=== PATIENT | female | born 1955 | race Caucasian/White ===

== ENCOUNTER → 2016-12-22 | Outpatient (CLI) | payer OTHER ==
[~2016-12-22] MED LIST: ATRV10T PO; CPH250CIP PO; ESTR0.5T PO; FLC150T PO; FLUO20CA25 PO; FLUO40CA12 PO; HYDR-3714 PO; HYDR-3816 PO; HYDR25TA4 PO; MEDR2.5T6 PO; PENLAC TOP; PHEN37.53 PO; TERB250T10 PO; TRAM50TA2 PO
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
== END ==
LOC: RAD 16:51
PROVIDERS: ATTEND Pain Medicine Pain Medicine
DX: M51.36 Other intervertebral disc degeneration, lumbar region (principal)
CPT/HCPCS: 72100

== ENCOUNTER 2017-01-01 07:03 | Outpatient (CLI) | payer OTHER ==
[~2017-01-01] VITALS: Ht 167.6 cm; Wt 69.9 kg
[~2017-01-01 07:03] MED LIST changes: -FLUO40CA12 PO; -HYDR-3816 PO; -TERB250T10 PO
[2017-01-01] MEDS ORDERED: BUPIVACAINE 0.25% 30 ML (SENSORCAINE) VIAL ONE (07:23)
[2017-01-01] MEDS ORDERED: TRIAMCINOLONE ACET (KENALOG-40) 40 MG/ML 1 ML VIAL ONE (07:23)
[2017-01-01] MEDS ORDERED: LIDOCAINE 1% INJ 20 ML (XYLOCAINE) VIAL ONE (07:23)
[2017-01-01 07:27] VITALS: BP 133/82
[2017-01-01 07:52] VITALS: BP 136/93
--- NOTE | 2017-01-01 12:06 | Pain Medicine-Procedure ---
Procedure Pre-Op/Post-Op Diagnosis Diagnosis: sacrococcygeal disorder Indications for Operation Hip pain Attending Surgeon Mariia Procedure Date of Service: Jan 01, 2017 Procedure: Flouroscopic guided bilateral sacroiliac joint injection PROCEDURE IN DETAIL: After obtaining informed consent from the patient, the patient's chart was reviewed. The patient was then brought to the procedure room and placed in the prone position. A time out was performed. The back was prepped with antiseptic solution and under fluoroscopic guidance the patient's sacroiliac joint on both sides was identified. Attention was first turned to the right sacroiliac joint injection where 2 mL's of 1% lidocaine was used to anesthetize the skin and then two 22-gauge 3.5 inch spinal needles were inserted and advanced under flouroscopic guidance until they were in the lower 1 /3 of the right sacroiliac joint. Next, attention was then turned to the left sacroiliac joint injection where 2 mL's of 1% lidocaine was used to anesthetize the skin and then two 22-gauge 3.5 inch spinal needles were inserted and advance under flouroscopic guidance until they were in the lower 1/3 of the sacroiliac joint on the left side. After negative aspiration, each needle was injected with 40 mg of Kenalog along with 2 mL's of 0.25% marcaine. All needles were then flushed with 1% lidocaine and then removed. Band-Aids were applied to all the sites and the patient tolerated the procedure well and was taken to the recovery area in stable condition. Complications None ALIX GILLETTE MD Jan 01, 2017 12:06 pm
== END 2017-01-01 07:54 | disposition home or self-care (01) ==
LOC: CARD 07:03
PROVIDERS: ATTEND Pain Medicine Pain Medicine
DX: M53.3 Sacrococcygeal disorders, not elsewhere classified (principal); M47.816 Spondylosis without myelopathy or radiculopathy, lumbar region
CPT/HCPCS: 27096

== ENCOUNTER → 2017-03-09 | Outpatient (CLI) | payer OTHER ==
[~2017-03-09] MED LIST changes: +FLUO40CA12 PO; +HYDR-3816 PO; +TERB250T10 PO
--- NOTE | 2017-03-09 13:02 | Diagnostic Imaging Report ---
EXAMINATION: Three views of the lumbar spine. INDICATION: Back pain. FINDINGS: There is partial lumbarization of the S1 level with the left lateral mass mimicking a left transverse process. There are significant degenerative sclerotic changes at the L5-S1 endplates around this disc. There is a slightly prominent disc between the S1 and S2 levels. The posterior spinal alignment is satisfactory. There is a 20% compression fracture of the T12 vertebral body which appears to be new compared to lumbar spine radiographs from 12/22/2016. There are multilevel anterior osteophytes. A small posterior osteophyte at L5-S1 is seen. There is a right hip replacement and surgical clips in the upper right abdomen. IMPRESSION: 1. There is a 20% compression fracture at the T12 vertebral body, new from 12/22/2016. 2. There is a transitional lumbosacral junction with a prominent disc at the S1-S2 level and partial lumbarization of the L5 vertebral body. 3. The report was faxed to the office of Aida Escalante APRN, by [email or web address]@12:50 PM. Dictated by: Dictated on workstation # [id number]
--- NOTE | 2017-03-09 13:45 | Diagnostic Imaging Report ---
KUB. INDICATION: Back pain. FINDINGS: There is a right hip replacement and upper right abdomen surgical clips. Transitional lumbosacral junction is seen with partial lumbarization of S1. There is unremarkable bowel gas pattern with small to moderate amounts of fecal material in the colon. IMPRESSION: Small to moderate amounts of fecal material in the colon. Dictated by: Dictated on workstation # [id number]
--- NOTE | 2017-03-09 13:51 | Diagnostic Imaging Report ---
EXAMINATION: Three views of the thoracic spine. INDICATION: Back pain. FINDINGS: There is a 20% compression fracture of T12 vertebra, new from 12/22/2016 exam compatible with an acute to subacute compression fracture. The other vertebral body heights are preserved. There are preserved disc heights as well and alignment of the posterior spinal line. The paraspinal soft tissues appear grossly unremarkable. Surgical clips in the upper right abdomen seen. IMPRESSION: Findings suggestive of an acute to subacute T12 compression fracture. Dictated by: Dictated on workstation # [id number]
== END ==
LOC: RAD 11:32
PROVIDERS: ATTEND Nurse Practitioner Family
DX: S22.089A Unspecified fracture of T11-T12 vertebra, initial encounter for closed fracture (principal); X58.XXXA Exposure to other specified factors, initial encounter; Y99.8 Other external cause status
CPT/HCPCS: 72072; 72100; 74000

== ENCOUNTER → 2017-03-17 | Outpatient (CLI) | payer OTHER ==
--- NOTE | 2017-03-18 10:19 | Diagnostic Imaging Report ---
Multiplanar multisequence MRI of the thoracic spine performed without intravenous contrast. INDICATION: Compression fracture. FINDINGS: There is 30 percent compression fracture of T12 vertebral body with associated bone marrow edema throughout the vertebral body. There is minimal posterior bulge of the posterior superior aspect of the vertebral body with no associated spinal canal stenosis. No cord compression. There is no fragment retropulsion into the spinal canal. There is slight extension of the bone marrow edema into the pedicles with no fracture line or displacement identified. The alignment of the posterior spinal line is satisfactory. There is minimal old compression of T7 vertebral body with normal marrow signal at this time. The discs demonstrate desiccation at all levels. There is suggestion of a prominent disc at C6-C7 only partially visualized on this exam with perhaps mild/moderate canal stenosis. There is a mild disc herniation at T1-T2 with no significant canal stenosis. At this level there is bilateral foraminal narrowing mild on the right and moderate on the left. There is a disc herniation at T11-T12 level with no significant spinal canal stenosis or cord compression. No foraminal stenosis is seen. IMPRESSION: Acute/ subacute 30 percent compression fracture of T12 vertebral body with minimal bulge of the posterior superior aspect of the vertebral body with no associated spinal canal stenosis or bone fragment retropulsion. Dictated by: Dictated on workstation # [id number]
== END ==
LOC: RAD 17:30
PROVIDERS: ATTEND Nurse Practitioner Family
DX: M48.54XA Collapsed vertebra, not elsewhere classified, thoracic region, initial encounter for fracture (principal)
CPT/HCPCS: 72146

== ENCOUNTER 2017-03-23 09:34 | Outpatient (CLI) | payer OTHER ==
[~2017-03-23] VITALS: Ht 167.6 cm; Wt 65.3 kg
[~2017-03-23 09:34] MED LIST changes: -FLUO40CA12 PO; -HYDR-3816 PO; -TERB250T10 PO
[2017-03-23] MEDS ORDERED: TERB250T10 PO (11:38)
[2017-03-23] MEDS ORDERED: FLUO40CA12 PO (11:38)
== END 2017-03-23 12:18 ==
LOC: PREOP 09:34
DX: Z01.818 Encounter for other preprocedural examination (principal); S22.080A Wedge compression fracture of T11-T12 vertebra, initial encounter for closed fracture; X58.XXXA Exposure to other specified factors, initial encounter; Y99.8 Other external cause status

== ENCOUNTER 2017-03-25 11:16 | Day surgery (SDC) | payer OTHER ==
[~2017-03-25] VITALS: Ht 167.6 cm; Wt 65.3 kg
[~2017-03-25 11:16] MED LIST changes: +FLUO40CA12 PO; +TERB250T10 PO
[2017-03-25] MEDS: LACTATED RINGERS 1,000 ML IV PRN ×2 (11:30→15:21)
[2017-03-25] MEDS ORDERED: ceFAZolin 1 GM/NS 50 ML IVPB IV ONE ×2 (11:45)
[2017-03-25 11:48] LABS: RED BLOOD COUNT 4.19 10^6/uL (4.35-5.85); RED CELL DISTRIBUTION WIDTH 12.9 % (10.0-14.5); WHITE BLOOD COUNT 6.9 10^3/uL (4.3-11.0)
[2017-03-25 11:56] LABS: INR 0.9 (0.8-1.4); PROTHROMBIN TIME PATIENT 12.1 SEC (12.2-14.7)
[2017-03-25 12:01] LABS: ANION GAP 12 MMOL/L (5-14); BLOOD UREA NITROGEN 20 MG/DL (7-18); BUN/CREATININE RATIO 24; CALCIUM 9.3 MG/DL (8.5-10.1); CARBON DIOXIDE 26 MMOL/L (21-32); CHLORIDE 103 MMOL/L (98-107); CREATININE SERUM 0.85 MG/DL (0.60-1.30); GFR ESTIMATED > 60; GLUCOSE 94 MG/DL (70-105); POTASSIUM 3.7 MMOL/L (3.6-5.0); SODIUM 141 MMOL/L (135-145)
[2017-03-25] MEDS ORDERED: MIDAZOLAM 2 MG/2 ML (VERSED) VIAL ONE ×2 (12:09→12:18)
[2017-03-25] MEDS ORDERED: MIDAZOLAM 2 MG/2 ML (VERSED) VIAL IV ONE (12:15)
[2017-03-25] MEDS ORDERED: fentaNYL INJECTION 100 MCG/2 ML AMP ONE (12:17)
[2017-03-25] MEDS ORDERED: LACTATED RINGERS 1,000 ML IV ONE ×2 (12:18→15:42)
[2017-03-25] MEDS ORDERED: ROCURONIUM 50 MG/5 ML (ZEMURON) VIAL IV ONE (12:18)
[2017-03-25] MEDS ORDERED: LIDOCAINE JELLY 2% (XYLOCAINE) 5 ML TUBE ONE (12:18)
[2017-03-25] MEDS ORDERED: ONDANSETRON 4 MG/2 ML (SDV) Z0FRAN ONE (12:18)
[2017-03-25] MEDS ORDERED: LIDOCAINE PF 2% 10 ML (XYLOCAINE) AMP ONE (12:18)
[2017-03-25] MEDS ORDERED: proPOfol 200 MG/20 ML (DIPRIVAN) VIAL IV ONE ×2 (12:18→14:22)
[2017-03-25 12:28] VITALS: BP 127/77
[2017-03-25] MEDS ORDERED: HYDR-3816 PO (12:31)
[2017-03-25] MEDS ORDERED: LIDOCAINE 1% INJ 20 ML (XYLOCAINE) VIAL ONE ×2 (12:31→15:16)
--- NOTE | 2017-03-25 14:32 | Pre-Procedure Progress Note ---
Pre-Procedure Progress Note H&P Reviewed The H&P was reviewed, patient examined and no changes noted. Date H&P Reviewed: Mar 25, 2017 Time H&P Reviewed: 14:00 Pre-Procedure Diagnosis: T12 compression fracture T12 kyphoplasty to be performed. JANAK HUERTA MD Mar 25, 2017 14:32
[2017-03-25] MEDS ORDERED: morphine INJ 10 MG/ML 1ML (SYR OR VIAL) IVP PRN (16:00)
[2017-03-25] MEDS ORDERED: ONDANSETRON 4 MG/2 ML (SDV) Z0FRAN IVP PRN ×2 (16:00→16:30)
[2017-03-25 16:30] VITALS: BP 130/65
[2017-03-25] MEDS ORDERED: CATHETER FLUSH 10 ML SYR IV ONE (16:30)
[2017-03-25] MEDS: HYDROcodone/APAP 5 MG/325 MG (LORTAB) TAB PO PRN ×2 (16:39→17:15)
--- NOTE | 2017-03-25 16:52 | Diagnostic Imaging Report ---
EXAMINATION: Kyphoplasty with fluoroscopy guidance. INDICATION: 61-year-old female patient with the acute to subacute compression fracture of T12 vertebral body. The patient has severe pain at 8/10 that is not relieved with the oral pain medications . CONSENT: Informed consent was obtained from the patient. The risks, benefits, potential complications and alternatives were reviewed and all questions answered to the patient's satisfaction. The patient's vital signs, cardiac rhythm, and pulse oximetry were observed throughout the procedure by qualified nursing personnel. ANESTHESIA: See anesthesia note. FLUOROSCOPY TIME: 5 minutes and 16 seconds. Medications: Ancef 1 g IV preoperatively. Estimated blood loss: Less than 20 mL. PROCEDURE: Maximal sterile barrier preparation and draping is performed to the back with the patient prone on the operative table, including sterile covering of the fluoroscopy machine. The T12 vertebral level is localized with anterior and lateral fluoroscopic visualization. Appropriate orientation and angle was marked and a transpedicular approach was deemed appropriate. A left paramedian skin incision is made and cannula with distal half size of 12-gauge is advanced under fluoroscopic guidance in both projections. This is advanced through the pedicle under fluoroscopic guidance and the tip of the cannula was placed along the posterior one-third of the vertebral body. This is followed by right paramedian skin incision and the steps repeated with transpedicular cannula placed similarly with the tip at the posterior third of the vertebral body. A biopsy of the vertebral body was performed. This is sent to pathology in formalin. Subsequently, a manual drill is utilized under fluoroscopic guidance to create a tract was performed to near the anterior border of the vertebral body. Subsequently bilateral 15/2 balloons are advanced into the vertebral body and inflated with rated pressure, upto 300. Considerable reduction of the compression fracture is achieved with balloon inflation. Subsequently cement injection after appropriate mixing and maturation is performed alternatively in both cannulas until filling into the posterior third of the vertebral body is achieved. Total of 3.5 cc of cement introduced. Cement introduction was performed under imaging guidance. No extravasation of cement into the spinal canal is seen. Both cannulas were removed with the stylet in place, after cement introduction. No immediate complications. IMPRESSION: Successful T12 kyphoplasty via fluoroscopy-guided bilateral transpedicular approach. Dictated by: Dictated on workstation # [id number]
[2017-03-25 17:00] VITALS: BP 126/70
[2017-03-25 17:50] VITALS: BP 126/70
== END 2017-03-25 17:50 | disposition home or self-care (01) ==
LOC: SDC 11:16
DX: S22.080A Wedge compression fracture of T11-T12 vertebra, initial encounter for closed fracture (principal); X58.XXXA Exposure to other specified factors, initial encounter; Y99.8 Other external cause status
CPT/HCPCS: 36415; 80048; 85027; 85610; 87081; 88304

== ENCOUNTER 2017-06-16 19:46 | Emergency (ER) | payer OTHER ==
[~2017-06-16] VITALS: Ht 167.6 cm; Wt 63.5 kg
[~2017-06-16 19:46] MED LIST changes: +HYDR-3816 PO
[2017-06-16] MEDS ORDERED: LIDOCAINE 1% INJ 20 ML (XYLOCAINE) VIAL INJ STA (20:01)
[2017-06-16] MEDS ORDERED: TETANUS,DIPTH,PERTUSS P/F (BOOSTRIX) 0.5 ML VIAL IM STA (20:01)
[2017-06-16] MEDS ORDERED: CEPH-507 PO (20:47)
--- NOTE | 2017-06-16 20:47 | ED Upper Extremity ---
General Chief Complaint: Laceration Stated Complaint: PT FELL/LACERATIONS ON ARMS Nursing Triage Note: PT FELL OFF CHAIR LANDING ON KAUR POT AND HAS LACERATIONS TO BILAT ARMS. Nursing Sepsis Screen: No Definite Risk History of Present Illness Time seen by provider: 19:55 Initial Comments Lacerations to bilateral forearms, ulnar surfaces. She also has some mild right lower rib pain Onset: just prior to arrival Pain/Injury Location: left forearm Method of Injury: fell (she was standing on a chair and fell onto a broken kaur pot.) Modifying Factors: Improves With Immobilization, Improves With Rest Allergies and Home Medications Allergies Coded Allergies: Sulfa (Sulfonamide Antibiotics) (Unverified Allergy, Unknown, 03/23/17) Home Medications Atorvastatin Calcium 10 Mg Tablet, 10 MG PO DAILY, (Reported) Cephalexin 500 Mg Capsule, 500 MG PO TID, #15 Ref 0 Prescribed by: MÓNICA CORDERO on 06/16/172046 Estradiol 0.5 Mg Tablet, 0.5 MG PO DAILY, (Reported) Fluoxetine HCl 40 Mg Capsule, 40 MG PO DAILY, (Reported) Hydrochlorothiazide 25 Mg Tablet, 25 MG PO DAILY, (Reported) Hydrocodone/Acetaminophen 1 Each Tablet, 2 EACH PO Q4H PRN for PAIN-MODERATE, ( Reported) Terbinafine HCl 250 Mg Tablet, 250 MG PO DAILY, (Reported) Constitutional: no symptoms reported, see HPI Musculoskeletal: see HPI, back pain (chronic back problems with recent kyphoplasty at T12) Skin: see HPI, other (laceration bilateral forearms) All Other Systems Reviewed Negative Unless Noted: Yes Past Wpwqmur-Otujrv-Kxrtcc Hx Patient Social History Alcohol Use: Occasionally Uses Recreational Drug Use: No Smoking Status: Former Smoker 2nd Hand Smoke Exposure: No Recent Foreign Travel: No Contact w/Someone Who Travel: No Recent Infectious Disease Expo: No Recent Hopitalizations: No Immunizations Up To Date Tetanus Booster (TDap): Unknown Date of Influenza Vaccine: Sep 07, 2016 Seasonal Allergies Seasonal Allergies: No Surgeries HX Surgeries: Yes (R THR) Surgeries: Section, Gallbladder, Hysterectomy, Tonsillectomy Respiratory Hx Respiratory Disorders: No Cardiovascular Hx Cardiac Disorders: Yes Cardiac Disorders: High Cholesterol Neurological Hx Neurological Disorders: No Reproductive System Hx Reproductive Disorders: No Sexually Transmitted Disease: No HIV/AIDS: No 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 Genitourinary Hx Genitourinary Disorders: No Genitourinary Disorders: Kidney Infection, Kidney Stones, UTI-Chronic Gastrointestinal Hx Gastrointestinal Disorders: No Musculoskeletal Hx Musculoskeletal Disorders: Yes (COMPRESSION FX T12) Musculoskeletal Disorders: Chronic Back Pain Endocrine Hx Endocrine Disorders: No HEENT HX ENT Disorders: No (GLASSES) Loss of Vision: Denies Hearing Impairment: Denies Cancer Hx Cancer: Yes (REMOVED) Cancer: Skin Psychosocial Hx Psychiatric Problems: No Integumentary HX Skin/Integumentary Disorder: No Blood Transfusions Hx Blood Disorders: No Adverse Reaction to a Blood Tr: No (N/A) Reviewed Nursing Assessment Reviewed/Agree w Nursing PMH: Yes Family Medical History Family Medial History: Cancer 03 FATHER Family history: Cardiovascular disease 09 BROTHER Family history: Hypertension 03 MOTHER History of - respiratory disease 09 BROTHER Physical Exam Vital Signs Vital Sign - Last 12Hours 06/16/17 19:50 Temp 98.2 Pulse 74 Resp 16 B/P (MAP) 138/74 Pulse Ox 98 O2 Delivery Room Air Capillary Refill : Less Than 3 Seconds General Appearance: WD/WN Neck: non-tender, full range of motion, supple, normal inspection Cardiovascular: normal peripheral pulses, regular rate, rhythm, no murmur Respiratory: chest non-tender, lungs clear, normal breath sounds Gastrointestinal: normal bowel sounds, non tender Back: no CVA tenderness, decreased range of motion, vertebral tenderness, other (superficial abrasion upper lumbar spine, no bleeding.) Shoulder: normal inspection, non-tender, no evidence of injury, normal ROM Elbow/Forearm: Right, Left, pain (lacerations) Wrist: Yes normal inspection, Yes non-tender, Yes no evidence of injury, Yes normal ROM Hand: normal inspection, non-tender, no evidence of injury, normal ROM Neurologic/Tendon: normal sensation, normal motor functions, normal tendon functions Neurologic/Psychiatric: no motor/sensory deficits, alert, normal mood/affect, oriented x 3 Skin: normal color, warm/dry Lymphatic: no adenopathy Progress/Results/Core Measures Results/Orders My Orders Orders - MÓNICA CORDERO DiphtPerttri(Acell),Tet Adult (Boostrix (06/16/17 20:01) Lidocaine 1% Injection (Xylocaine 1% Inj (06/16/17 20:01) Ribs, Right 2-3 Views (06/16/17 20:47) Hydrocodone/Apap 7.5/325 Tab (Lortab 7. (06/16/17 20:48) Thoracic Spine, 2 Views Only (06/16/17 21:20) Lumbar Spine - 2-3 Views (06/16/17 21:20) Vital Signs/I&O Vital Sign - Last 12Hours 06/16/17 06/16/17 19:50 22:21 Temp 98.2 98.2 Pulse 74 74 Resp 16 16 B/P (MAP) 138/74 Pulse Ox 98 98 O2 Delivery Room Air Blood Pressure Mean: 95 Progress Note : Time: 19:55 Progress Note Initial evaluation for lacerations to bilateral forearms. Discussed plan for irrigation and suturing. 2039 after completion of the suturing the patient was complaining of continued right rib pain, x-rays will be obtained. 2099 patient reports the rib pain has improved but she is having some increased low back pain. She chronically has had problems with her back that this pain seems to be slightly different. 2129 reviewed x-rays of the lumbar and thoracic spine, show previous kyphoplasty at T12 degenerative changes at L4-5 and L5 S1. No acute bony abnormalities noted Diagnostic Imaging Diagonstic Imaging: Xray Plain Films/CT/US/NM/MRI: other (right ribs) Comments NAME: KAREN ZAYAS [facility] REC#: [id number] PT STATUS: REG ER : 1955 PHYSICIAN: MÓNICA CORDERO ADMIT DATE: 06/16/17/ER Draft Date of Exam:06/16/17 RIBS, RIGHT 2-3 VIEWS EXAM: Ribs, right 2-3 views. INDICATION: Pain under right breast. COMPARISON: None. FINDINGS: Normal heart size and pulmonary vascularity. No focal pulmonary opacity, pleural effusion or pneumothorax in the right lung. No fracture is identified. Cholecystectomy clips. Vertebroplasty changes in the T12 vertebral body. IMPRESSION: No right rib fracture is identified. Dictated on workstation # [id number] Dict: 06/16/172140 Trans: 06/16/172145 [facility] [id number] Interpreted by: JETHRO ENGLISH MD Electronically signed by: Reviewed: Reviewed by Me Departure Impression Impression: Primary Impression: Laceration Additional Impressions: Rib pain on right side Back pain Qualified Codes: M54.6 - Pain in thoracic spine Disposition: 01 HOME, SELF-CARE Condition: Improved Departure-Patient Inst. Decision time for Depature: 22:00 Referrals: MONSERRAT HUFF MD (PCP/Family) Primary Care Physician Patient Instructions: Laceration Repair With Stitches (DC), Low Back Pain (DC) Add. Discharge Instructions: Keep wounds to arms clean and dry. May shower and then clean areas with peroxide and apply dressing or Band-Aid. Take antibiotic as prescribed. Do not immerse arms in sinks of water, bathtub, swimming pools, hot tubs, lakes or [place]irez. May shower. Return to emergency department or primary care provider in 7-10 days for suture removal. Return to emergency department sooner for increased pain, redness, warmth, or discolored drainage from wounds, or new problems. Take pain medicine that you have at home as needed. Stop frequently on car ride to [place] to get out of walk around. All discharge instructions reviewed with patient and/or family. Voiced understanding. Scripts Cephalexin (Keflex) 500 Mg Capsule 500 MG PO TID, #15 CAP 0 Refills Prov: MÓNICA CORDERO 06/16/17 MÓNICA CORDERO Jun 16, 2017 20:47
[2017-06-16] MEDS ORDERED: HYDROcodone/APAP 7.5 MG/325 MG (LORTAB, LORCET PLUS) TABLET PO STA (20:48)
--- NOTE | 2017-06-16 21:46 | Diagnostic Imaging Report ---
EXAM: Ribs, right 2-3 views. INDICATION: Pain under right breast. COMPARISON: None. FINDINGS: Normal heart size and pulmonary vascularity. No focal pulmonary opacity, pleural effusion or pneumothorax in the right lung. No fracture is identified. Cholecystectomy clips. Vertebroplasty changes in the T12 vertebral body. IMPRESSION: No right rib fracture is identified. Dictated by: Dictated on workstation # [id number]
[2017-06-16 22:21] VITALS: BP 138/74
--- NOTE | 2017-06-18 11:31 | RADIOLOGY REPORT ---
Patient name: KAREN ZAYAS ACC: [id number] : 1955 Age:61 years Room: Class: Emergency Gender: Female ATT DR: MÓNICA CORDERO Phone: Procedure: THORACIC SPINE, 2 VIEWS ONLY, LUMBAR SPINE - 2-3 VIEWS ORD Date: 06/16/2017 9:54 PM Reason for Study: Final Report EXAM: THORACIC SPINE, 2 VIEWS ONLY, LUMBAR SPINE - 2-3 VIEWS INDICATION: Back pain. COMPARISON: MRI thoracic spine 03/17/2017. FINDINGS: Stable compression deformity of the T12 vertebral body which has now been treated with vertebroplasty. No new compression deformities. There is grade 1 retrolisthesis of L1 on L2. Alignment is otherwise unremarkable. Mild to moderate degenerative endplate changes in the lumbar spine are most marked at L5-S1 where thy are advanced. Moderate lower lumbar facet arthropathy. Right NEISHA. IMPRESSION: 1. No acute radiographic findings in the thoracolumbar spine. 2. Vertebroplasty changes within a T12 compression fracture which results in approximately 40% height loss. Dictated by: Created by: Ben Hooker on 06/16/2017 10:05 PM Transcribed by: INESSA 06/16/2017 10:10 PM MICHAEL
--- NOTE | 2017-06-18 11:32 | RADIOLOGY REPORT ---
Patient name: KAREN ZAYAS ACC: [id number] : 1955 Age:61 years Room: Class: Emergency Gender: Female ATT DR: MÓNICA CORDERO Phone: Procedure: THORACIC SPINE, 2 VIEWS ONLY, LUMBAR SPINE - 2-3 VIEWS ORD Date: 06/16/2017 9:54 PM Reason for Study: Final Report EXAM: THORACIC SPINE, 2 VIEWS ONLY, LUMBAR SPINE - 2-3 VIEWS INDICATION: Back pain. COMPARISON: MRI thoracic spine 03/17/2017. FINDINGS: Stable compression deformity of the T12 vertebral body which has now been treated with vertebroplasty. No new compression deformities. There is grade 1 retrolisthesis of L1 on L2. Alignment is otherwise unremarkable. Mild to moderate degenerative endplate changes in the lumbar spine are most marked at L5-S1 where thy are advanced. Moderate lower lumbar facet arthropathy. Right NEISHA. IMPRESSION: 1. No acute radiographic findings in the thoracolumbar spine. 2. Vertebroplasty changes within a T12 compression fracture which results in approximately 40% height loss. Dictated by: Created by: Ben Hooker on 06/16/2017 10:05 PM Transcribed by: INESSA 06/16/2017 10:10 PM MICHAEL
--- OUTSIDE RECORDS SUMMARY | 2017-06-24 02:09 | XMS REPORT | Continuity of Care Document ---
Author Author [facility] Organization [facility] Address Unknown Phone Unavailable Allergies Active Description Code Type Severity Reaction Onset Reported/Identified Relationship to Patient Clinical Status Yes Sulfa (Sulfonamide Antibiotics) [id number] Drug Allergy Unknown N/A 03/23/2017 Medications Problems Date Dx Coded Attending Type Code Diagnosis Diagnosed By 12/22/2013 TIARA NAPOLES MD Ot 614.6 FEM PELVIC PERITON ADH-POST-OP/INF 12/22/2013 TIARA NAPOLES MD Ot 620.2 OVARIAN CYST NEC/NOS 12/22/2013 TIARA NAPOLES MD Ot 682.2 CELLULITIS OF TRUNK 12/22/2013 TIARA NAPOLES MD Ot 998.59 OTH POSTOPER INFECTION 12/22/2013 TIARA NAPOLES MD Ot V03.82 PROPHYLACTIC VACC AGAINST STREPTOCOCCUS 12/22/2013 TIARA NAPOLES MD Ot V49.81 ASYMPT POSTMENOPAUSAL STATUS (AGE-RELATE 03/05/2015 Ot V76.12 03/05/2015 Ot 611.72 03/05/2015 Ot V76.12 03/05/2015 Ot 793.80 03/05/2015 Ot 793.89 03/05/2015 Ot V76.12 03/05/2015 Ot 611.72 03/05/2015 SRAVANTHI BLAKE DO Ot 724.02 03/05/2015 TIARA NAPOLES MD Ot 625.8 03/05/2015 TIARA NAPOLES MD Ot 620.2 03/05/2015 TIARA NAPOLES MD Ot V72.84 03/05/2015 TIARA NAPOLES MD Ot V76.12 03/05/2015 SRAVANTHI BLAKE DO Ot 715.33 03/05/2015 CHARLA LOUIE MD Ot 285.1 03/05/2015 CHARLA LOUIE MD Ot V43.64 03/05/2015 CHARLA LOUIE MD Ot V54.81 03/05/2015 CHARLA LOUIE MD Ot V57.89 03/25/2015 MONSERRAT HUFF MD Ot V76.12 06/10/2016 Ot 611.72 LUMP OR MASS IN BREAST 06/10/2016 Ot V76.12 OTH SCREEN MAMMO-MALIGN NEOPLASM OF ELIZABETH 06/10/2016 Ot 793.80 UNSPEC ABNORMAL MAMMOGRAM 06/10/2016 Ot 793.89 OTH (ABN) FINDINGS ON RADIOLOGICAL EXAMI 06/10/2016 Ot V76.12 OTH SCREEN MAMMO-MALIGN NEOPLASM OF ELIZABETH 06/10/2016 Ot 611.72 LUMP OR MASS IN BREAST 06/10/2016 SRAVANTHI BLAKE DO Ot 724.02 SPINAL STENOSIS, LUMBAR REG, W/OUT NEURO 06/10/2016 DONY CARRILLO, TIARA Miller Ot 625.8 FEM GENITAL SYMPTOMS NEC 06/10/2016 TIARA NAPOLES MD Ot 620.2 OVARIAN CYST NEC/NOS 06/10/2016 TIARA NAPOLES MD Ot V72.84 EXAM PRE-OPERATIVE NOS 06/10/2016 TIARA NAPOLES MD Ot V76.12 OTH SCREEN MAMMO-MALIGN NEOPLASM OF ELIZABETH 06/10/2016 SRAVANTHI BLAKE DO Ot 715.33 LOC OSTEOART NOS-FOREARM 06/10/2016 CHARLA LOUIE MD Ot 285.1 AC POSTHEMORRHAG ANEMIA 06/10/2016 CHARLA LOUIE MD Ot V43.64 HIP JOINT REPLACEMENT STATUS 06/10/2016 CHARLA LOUIE MD Ot V54.81 AFTERCARE FOLLOWING JOINT REPLACEMENT 06/10/2016 CHARLA LOUIE MD Ot V57.89 REHABILITATION PROC NEC 06/10/2016 MONSERRAT HUFF MD Ot V76.12 OTH SCREEN MAMMO-MALIGN NEOPLASM OF ELIZABETH 06/11/2016 MONSERRAT HUFF MD Ot Z12.31 ENCNTR SCREEN MAMMOGRAM FOR MALIGNANT NE 06/23/2016 MONSERRAT HUFF MD Ot Z12.31 ENCNTR SCREEN MAMMOGRAM FOR MALIGNANT NE 12/22/2016 Ot 793.89 OTH (ABN) FINDINGS ON RADIOLOGICAL EXAMI 12/22/2016 Ot V76.12 OTH SCREEN MAMMO-MALIGN NEOPLASM OF ELIZABETH 12/22/2016 Ot 611.72 LUMP OR MASS IN BREAST 12/22/2016 HAYDEN GOSS SRAVANTHI Dowling Ot 724.02 SPINAL STENOSIS, LUMBAR REG, W/OUT NEURO 12/22/2016 TIARA NAPOLES MD Ot 625.8 FEM GENITAL SYMPTOMS NEC 12/22/2016 TIARA NAPOLES MD Ot 620.2 OVARIAN CYST NEC/NOS 12/22/2016 TIARA NAPOLES MD Ot V72.84 EXAM PRE-OPERATIVE NOS 12/22/2016 TIARA NAPOLES MD Ot V76.12 OTH SCREEN MAMMO-MALIGN NEOPLASM OF ELIZABETH 12/22/2016 HAYDEN GOSS SRAVANTHI Dowling Ot 715.33 LOC OSTEOART NOS-FOREARM 12/22/2016 CHARLA LOUIE MD Ot 285.1 AC POSTHEMORRHAG ANEMIA 12/22/2016 CHARLA LOUIE MD Ot V43.64 HIP JOINT REPLACEMENT STATUS 12/22/2016 CHARLA LOUIE MD Ot V54.81 AFTERCARE FOLLOWING JOINT REPLACEMENT 12/22/2016 CHARLA LOUIE MD Ot V57.89 REHABILITATION PROC NEC 12/22/2016 MONSERRAT HUFF MD, Ot V76.12 OTH SCREEN MAMMO-MALIGN NEOPLASM OF ELIZABETH 12/22/2016 MONSERRAT HUFF MD Ot Z12.31 ENCNTR SCREEN MAMMOGRAM FOR MALIGNANT NE 12/23/2016 ALIX GILLETTE MD Ot M51.36 OTHER INTERVERTEBRAL DISC DEGENERATION, 12/28/2016 ALIX GILLETTE MD Ot M51.36 OTHER INTERVERTEBRAL DISC DEGENERATION, 01/01/2017 ALIX GILLETTE MD Ot M47.816 SPONDYLOSIS W/O MYELOPATHY OR RADICULOPA 01/01/2017 ALIX GILLETTE MD Ot M53.3 SACROCOCCYGEAL DISORDERS, NOT ELSEWHERE 01/05/2017 ALIX GILLETTE MD Ot M51.36 OTHER INTERVERTEBRAL DISC DEGENERATION, 03/09/2017 Ot 793.89 OTH (ABN) FINDINGS ON RADIOLOGICAL EXAMI 03/09/2017 Ot V76.12 OTH SCREEN MAMMO-MALIGN NEOPLASM OF ELIZABETH 03/09/2017 Ot 611.72 LUMP OR MASS IN BREAST 03/09/2017 HAYDEN GOSS SRAVANTHI Dowling Ot 724.02 SPINAL STENOSIS, LUMBAR REG, W/OUT NEURO 03/09/2017 TIARA NAPOLES MD Ot 625.8 FEM GENITAL SYMPTOMS NEC 03/09/2017 TIARA NAPOLES MD Ot 620.2 OVARIAN CYST NEC/NOS 03/09/2017 TIARA NAPOLES MD Ot V72.84 EXAM PRE-OPERATIVE NOS 03/09/2017 TIARA NAPOLES MD Ot V76.12 OTH SCREEN MAMMO-MALIGN NEOPLASM OF ELIZABETH 03/09/2017 HAYDEN GOSS, SRAVANTHI Dowling Ot 715.33 LOC OSTEOART NOS-FOREARM 03/09/2017 LIBAN CARRILLO, CHARLA Avelar Ot 285.1 AC POSTHEMORRHAG ANEMIA 03/09/2017 CHARLA LOUIE MD Ot V43.64 HIP JOINT REPLACEMENT STATUS 03/09/2017 CHARLA LOUIE MD Ot V54.81 AFTERCARE FOLLOWING JOINT REPLACEMENT 03/09/2017 CHARLA LOUIE MD Ot V57.89 REHABILITATION PROC NEC 03/09/2017 REFUGIO CARRILLO, MONSERRAT Miller Ot V76.12 OTH SCREEN MAMMO-MALIGN NEOPLASM OF ELIZABETH 03/09/2017 MONSERRAT HUFF MD Ot Z12.31 ENCNTR SCREEN MAMMOGRAM FOR MALIGNANT NE 03/09/2017 NAIN CARRILLO, ALIX Malik Ot M51.36 OTHER INTERVERTEBRAL DISC DEGENERATION, 03/10/2017 CORDELL FRANKEL APRN Ot S22.089A UNSP FRACTURE OF T11-T12 VERTEBRA, INIT 03/10/2017 CORDELL FRANKEL APRN Ot X58.XXXA EXPOSURE TO OTHER SPECIFIED FACTORS, INI 03/10/2017 CORDELL FRANKEL DOG RACES MANAGER Ot Y99.8 OTHER EXTERNAL CAUSE STATUS 03/18/2017 CORDELL FRANKEL APRN Ot M48.54XA COLLAPSED VERTEBRA, NEC, THORACIC REGION 03/23/2017 CORDELL FRANKEL APRN Ot S22.089A UNSP FRACTURE OF T11-T12 VERTEBRA, INIT 03/23/2017 CORDELL FRANKEL APRN Ot X58.XXXA EXPOSURE TO OTHER SPECIFIED FACTORS, INI 03/23/2017 CORDELL FRANKEL APRN Ot Y99.8 OTHER EXTERNAL CAUSE STATUS 03/23/2017 DEANNA CARRILLO, JANAK Z Ot S22.080A WEDGE COMPRESSION FRACTURE OF T11-T12 VE 03/23/2017 DEANNA CARRILLO, JANAK Z Ot X58.XXXA EXPOSURE TO OTHER SPECIFIED FACTORS, INI 03/23/2017 DEANNA CARRILLO JANAK Z Ot Y99.8 OTHER EXTERNAL CAUSE STATUS 03/23/2017 DEANNA CARRILLO JANAK Z Ot Z01.818 ENCOUNTER FOR OTHER PREPROCEDURAL EXAMIN 03/24/2017 DEANNA CARRILLO JANAK Z Ot S22.080A WEDGE COMPRESSION FRACTURE OF T11-T12 VE 03/24/2017 DEANNA CARRILLO JANAK Z Ot X58.XXXA EXPOSURE TO OTHER SPECIFIED FACTORS, INI 03/24/2017 DEANNA CARRILLO JANAK Z Ot Y99.8 OTHER EXTERNAL CAUSE STATUS 03/24/2017 DEANNA CARRILLO JANAK Z Ot Z01.818 ENCOUNTER FOR OTHER PREPROCEDURAL EXAMIN 03/25/2017 Ot 793.89 OTH (ABN) FINDINGS ON RADIOLOGICAL EXAMI 03/25/2017 Ot V76.12 OTH SCREEN MAMMO-MALIGN NEOPLASM OF ELIZABETH 03/25/2017 Ot 611.72 LUMP OR MASS IN BREAST 03/25/2017 SRAVANTHI BLAKE DO Ot 724.02 SPINAL STENOSIS, LUMBAR REG, W/OUT NEURO 03/25/2017 TIARA NAPOLES MD Ot 625.8 FEM GENITAL SYMPTOMS NEC 03/25/2017 TIARA NAPOLES MD Ot 620.2 OVARIAN CYST NEC/NOS 03/25/2017 TIARA NAPOLES MD Ot V72.84 EXAM PRE-OPERATIVE NOS 03/25/2017 TIARA NAPOLES MD Ot V76.12 OTH SCREEN MAMMO-MALIGN NEOPLASM OF ELIZABETH 03/25/2017 SRAVANTHI BLAKE DO Ot 715.33 LOC OSTEOART NOS-FOREARM 03/25/2017 CHARLA LOUIE MD Ot 285.1 AC POSTHEMORRHAG ANEMIA 03/25/2017 CHARLA LOUIE MD Ot V43.64 HIP JOINT REPLACEMENT STATUS 03/25/2017 CHARLA LOUIE MD Ot V54.81 AFTERCARE FOLLOWING JOINT REPLACEMENT 03/25/2017 CHARLA LOUIE MD Ot V57.89 REHABILITATION PROC NEC 03/25/2017 MONSERRAT HUFF MD Ot V76.12 OTH SCREEN MAMMO-MALIGN NEOPLASM OF ELIZABETH 03/25/2017 MONSERRAT HUFF MD Ot Z12.31 ENCNTR SCREEN MAMMOGRAM FOR MALIGNANT NE 03/25/2017 NAIN CARRILLO, ALIX Malik Ot M51.36 OTHER INTERVERTEBRAL DISC DEGENERATION, 03/25/2017 JOSTIN, CORDELL M DOG RACES MANAGER Ot S22.089A UNSP FRACTURE OF T11-T12 VERTEBRA, INIT 03/25/2017 CORDELL FRANKEL DOG RACES MANAGER Ot X58.XXXA EXPOSURE TO OTHER SPECIFIED FACTORS, INI 03/25/2017 CORDELL FRANKEL DOG RACES MANAGER Ot Y99.8 OTHER EXTERNAL CAUSE STATUS 03/25/2017 CORDELL FRANKEL DOG RACES MANAGER Ot M48.54XA COLLAPSED VERTEBRA, NEC, THORACIC REGION 03/25/2017 DEANNA CARRILLO, JANAK Z Ot S22.080A WEDGE COMPRESSION FRACTURE OF T11-T12 VE 03/25/2017 DEANNA CARRILLO, JANAK Z Ot X58.XXXA EXPOSURE TO OTHER SPECIFIED FACTORS, INI 03/25/2017 DEANNA CARRILLO, JANAK Z Ot Y99.8 OTHER EXTERNAL CAUSE STATUS 03/30/2017 CORDELL FRANKEL DOG RACES MANAGER Ot M48.54XA COLLAPSED VERTEBRA, NEC, THORACIC REGION 06/18/2017 MÓNICA CORDERO CUSTOMS COMPLIANCE DIRECTOR Ot E78.00 PURE HYPERCHOLESTEROLEMIA, UNSPECIFIED 06/18/2017 CONSUELO, MÓNICA CUSTOMS COMPLIANCE DIRECTOR Ot M54.9 DORSALGIA, UNSPECIFIED 06/18/2017 CONSUELO, MÓNICA CUSTOMS COMPLIANCE DIRECTOR Ot R07.81 PLEURODYNIA 06/18/2017 CONSUELO, MÓNICA CUSTOMS COMPLIANCE DIRECTOR Ot S51.812A LACERATION WITHOUT FOREIGN BODY OF LEFT 06/18/2017 MÓNICA CORDERO CUSTOMS COMPLIANCE DIRECTOR Ot W07.XXXA FALL FROM CHAIR, INITIAL ENCOUNTER 06/18/2017 MÓNICA CORDERO CUSTOMS COMPLIANCE DIRECTOR Ot Z85.828 PERSONAL HISTORY OF OTHER MALIGNANT NEOP 06/18/2017 CONSUELO MÓNICA CUSTOMS COMPLIANCE DIRECTOR Ot Z87.311 PERSONAL HISTORY OF (HEALED) OTHER PATHO 06/18/2017 MÓNICA CORDERO CUSTOMS COMPLIANCE DIRECTOR Ot Z87.42 PERSONAL HISTORY OF OTH DISEASES OF THE 06/18/2017 CONSUELO MÓNICA CUSTOMS COMPLIANCE DIRECTOR Ot Z87.442 PERSONAL HISTORY OF URINARY CALCULI 06/18/2017 MÓNICA CORDERO CUSTOMS COMPLIANCE DIRECTOR Ot Z87.891 PERSONAL HISTORY OF NICOTINE DEPENDENCE 06/18/2017 MÓNICA OCRDERO CUSTOMS COMPLIANCE DIRECTOR Ot Z90.49 ACQUIRED ABSENCE OF OTHER SPECIFIED PART 06/18/2017 CONSUELO MÓNICA CUSTOMS COMPLIANCE DIRECTOR Ot Z90.89 ACQUIRED ABSENCE OF OTHER ORGANS 06/18/2017 MÓNICA CORDERO CUSTOMS COMPLIANCE DIRECTOR Ot Z98.890 OTHER SPECIFIED POSTPROCEDURAL STATES 06/18/2017 MÓNICA CORDERO Ot E78.00 PURE HYPERCHOLESTEROLEMIA, UNSPECIFIED 06/18/2017 MÓNICA CORDERO Ot M54.9 DORSALGIA, UNSPECIFIED 06/18/2017 MÓNICA CORDERO Ot R07.81 PLEURODYNIA 06/18/2017 MÓNICA CORDERO Ot S51.812A LACERATION WITHOUT FOREIGN BODY OF LEFT 06/18/2017 MÓNICA CORDERO Ot W07.XXXA FALL FROM CHAIR, INITIAL ENCOUNTER 06/18/2017 MÓNICA CORDERO Ot Z85.828 PERSONAL HISTORY OF OTHER MALIGNANT NEOP 06/18/2017 MÓNICA CORDEROP Ot Z87.311 PERSONAL HISTORY OF (HEALED) OTHER PATHO 06/18/2017 MÓNICA CORDEROP Ot Z87.42 PERSONAL HISTORY OF OTH DISEASES OF THE 06/18/2017 MÓNICA CORDERO Ot Z87.442 PERSONAL HISTORY OF URINARY CALCULI 06/18/2017 MÓNICA CORDERO Ot Z87.891 PERSONAL HISTORY OF NICOTINE DEPENDENCE 06/18/2017 MÓNICA CORDERO Ot Z90.49 ACQUIRED ABSENCE OF OTHER SPECIFIED PART 06/18/2017 MÓNICA CORDERO Ot Z90.89 ACQUIRED ABSENCE OF OTHER ORGANS 06/18/2017 MÓNICA CORDEROP Ot Z98.890 OTHER SPECIFIED POSTPROCEDURAL STATES Procedures Code Description Performed By Performed On 54.59 OTH LYSIS-PERITONEAL ADHES 12/19/2013 65.61 OTH REMOVE BOTH OVARIES/TUBES 12/19/2013 68.39 OTHER AND UNSPECIFIED SUBTOTAL ABDOMINAL 12/19/2013 Results Test Result Range Automated blood complete blood count (hemogram) panel - 03/25/17 11:35 Blood leukocytes automated count (number/volume) 6.9 10*3/ uL 4.3-11.0 Blood erythrocytes automated count (number/volume) 4.19 10*6 /uL 4.35-5.85 Venous blood hemoglobin measurement (mass/volume) 13.4 g/dL 11.5-16.0 Blood hematocrit (volume fraction) 40 % 35-52 Automated erythrocyte mean corpuscular volume 96 [foz_us] 80-99 Automated erythrocyte mean corpuscular hemoglobin (mass per erythrocyte) 32 pg 25-34 Automated erythrocyte mean corpuscular hemoglobin concentration measurement ( mass/volume) 33 g/dL 32-36 Automated erythrocyte distribution width ratio 12.9 % 10.0-14.5 Automated blood platelet count (count/volume) 269 10*3/uL 130-400 Automated blood platelet mean volume measurement 10.0 [foz_ us] 7.4-10.4 PT panel in platelet poor plasma by coagulation assay - 03/25/17 11:35 Prothrombin time (PT) in platelet poor plasma by coagulation assay 12.1 s 12.2-14.7 INR in platelet poor plasma or blood by coagulation assay 0.9 0.8-1.4 Whole blood basic metabolic panel - 03/25/17 11:35 Serum or plasma sodium measurement (moles/volume) 141 mmol/ L 135-145 Serum or plasma potassium measurement (moles/volume) 3.7 mmol/L 3.6-5.0 Serum or plasma chloride measurement (moles/volume) 103 mmol /L 98-107 Carbon dioxide 26 mmol/L 21-32 Serum or plasma anion gap determination (moles/volume) 12 mmol/L 5-14 Serum or plasma urea nitrogen measurement (mass/volume) 20 mg/dL 7-18 Serum or plasma creatinine measurement (mass/volume) 0.85 mg /dL 0.60-1.30 Serum or plasma urea nitrogen/creatinine mass ratio 24 NRG Serum or plasma creatinine measurement with calculation of estimated glomerular filtration rate > NRG Serum or plasma glucose measurement (mass/volume) 94 mg/dL 70-105 Serum or plasma calcium measurement (mass/volume) 9.3 mg/dL 8.5-10.1 Methicillin resistant Staphylococcus aureus (MRSA) screening culture - 11:35 Methicillin resistant Staphylococcus aureus (MRSA) screening culture NEG NRG Encounters ACCT No. Visit Date/Time Discharge Status Pt. Type Provider Facility Loc./Unit Complaint [id number] 06/16/2017 19:48:00 2016 22:23:00 DIS Outpatient MÓNICA CORDERO [facility] ER PT FELL/LACERATIONS ON ARMS [id number] 03/25/2017 11:16:00 2016 17:50:00 DIS Outpatient JANAK HUERTA MD [facility] T12 COMPRESSION FRACTURE [id number] 03/23/2017 09:34:00 2016 12:18:00 DIS Outpatient DEANNA CARRILLO, JANAK Z [facility] PREOP T12 COMPRESSION FRACTURE [id number] 01/01/2017 07:03:00 2016 07:54:00 DIS Outpatient NAIN CARRILLO, ALIX Malik [facility] CARD SACROCOCCYGEAL DISORDER [id number] 03/05/2015 11:03:00 2014 23:59:59 CLS Outpatient MONSERRAT HUFF MD [facility] RAD SCREENING [id number] 06/18/2014 14:51:00 2013 23:59:59 CLS Outpatient CHARLA LOUIE MD [facility] HH S/P RIGHT THR, ABL, ANEMIA [id number] 04/04/2014 08:02:00 2013 23:59:59 CLS Outpatient SRAVANTHI BLAKE DO [facility] RAD DJD RT HIP [id number] 02/13/2014 07:20:00 2013 23:59:59 CLS Outpatient TIARA NAPOLES MD [facility] RAD SCREENING [id number] 12/19/2013 06:05:00 2013 10:40:00 DIS Inpatient TIARA NAPOLES MD [facility] WS LEFT OVARIAN CYST [id number] 12/14/2013 12:30:00 2013 23:59:59 CLS Outpatient TIARA NAPOLES MD [facility] PREOP LEFT OVARIAN CYST [id number] 12/13/2013 14:18:00 2013 23:59:59 CLS Outpatient TIARA NAPOLES MD [facility] RAD CYSTIC STRUCTURE IN PELVIS [id number] 12/01/2013 07:58:00 2013 23:59:59 CLS Outpatient SRAVANTHI BLAKE DO [facility] RAD LOW BACK PAIN,LUMBAR RADICULOPATHY [id number] 06/10/2017 13:21:00 PEN Preadmit CORDELL FRANKEL APRN [facility] RAD SCREENING [id number] 03/17/2017 17:30:00 ACT Outpatient CORDELL FRANKEL APRN [facility] RAD T-12 COMPRESSION FRACTURE [id number] 03/09/2017 11:32:00 ACT Outpatient CORDELL FRANKEL APRN [facility] RAD BACK PAIN/MUSCLE SPASMS [id number] 12/22/2016 16:51:00 ACT Outpatient NAIN CARRILLO, ALIX Malik [facility] RAD LOW BACK PAIN [id number] 06/10/2016 07:16:00 ACT Outpatient REFUGIO CARRILLO, MONSERRAT Miller [facility] RAD SCREENING [id number] 03/05/2015 11:21:00 Document Registration [id number] 12/29/2012 14:20:00 Document Registration [id number] 04/01/2012 08:03:00 Document Registration [id number] 10/21/2011 09:06:00 Document Registration [id number] 04/08/2011 09:13:00 Document Registration [id number] 04/03/2011 13:29:00 Document Registration [id number] 03/05/2010 12:37:00 Document Registration
== END 2017-06-16 22:23 | disposition home or self-care (01) ==
LOC: EDUNIT# 19:46 → ER 19:48
DX: S51.812A Laceration without foreign body of left forearm, initial encounter (principal); E78.00 Pure hypercholesterolemia, unspecified; R07.81 Pleurodynia; M54.9 Dorsalgia, unspecified; Z85.828 Personal history of other malignant neoplasm of skin; Z87.311 Personal history of (healed) other pathological fracture; Z87.891 Personal history of nicotine dependence; Z98.890 Other specified postprocedural states; Z90.89 Acquired absence of other organs; Z87.42 Personal history of other diseases of the female genital tract; Z87.442 Personal history of urinary calculi; Z90.49 Acquired absence of other specified parts of digestive tract; W07.XXXA Fall from chair, initial encounter
CPT/HCPCS: 12002; 71100; 72070; 72100; 90471; 90715

== ENCOUNTER → 2017-06-30 | Outpatient (CLI) | payer OTHER ==
[~2017-06-30] MED LIST changes: +CEPH-507 PO
--- NOTE | 2017-07-01 19:27 | Diagnostic Imaging Report ---
Bilateral screening mammogram 2D views with tomosynthesis The current study was also evaluated with a Computer Aided Detection (CAD) system. INDICATION: Screening. No current complaints stated on the questionnaire. COMPARISON: 06/10/2016. FINDINGS: The breasts are composed of scattered fibroglandular densities. There are punctate calcifications in the left retroareolar region. Allowing for technique and positional differences, no suspicious change is seen. IMPRESSION: No significant change. ACR BI-RADS Category 2: Benign findings. Result letter will be mailed to the patient. Note: At least 10% of breast cancer is not imaged by mammography. Dictated by: Dictated on workstation # [id number]
== END ==
LOC: RAD 15:19
PROVIDERS: ATTEND Nurse Practitioner Family
DX: Z12.31 Encounter for screening mammogram for malignant neoplasm of breast (principal)
CPT/HCPCS: 77067

== ENCOUNTER → 2020-06-10 | Outpatient (CLI) | payer MEDICARE ==
[~2020-06-10] MED LIST changes: +HYDR-34 PO; -HYDR-3816 PO; -TERB250T10 PO; +TERB250T16 PO
--- NOTE | 2020-06-10 11:03 | Diagnostic Imaging Report ---
INDICATION: Routine screening. Comparison is made with prior mammogram from 06/30/2017 and 06/10/2016. 2-D and 3-D bilateral screening mammography was performed with CAD. Both breasts are heterogeneously dense, limiting the sensitivity of mammography. The parenchymal pattern appears to be stable. No dominant mass or malignant appearing microcalcifications are identified. The axillae are unremarkable. IMPRESSION: BI-RADS Category 1 No mammographic features suspicious for malignancy are identified. ACR BI-RADS Category 1: Negative. Result letter will be mailed to the patient. Note: At least 10% of breast cancer is not imaged by mammography. Dictated by: Dictated on workstation # [id number]
--- NOTE | 2020-06-10 13:02 | Diagnostic Imaging Report ---
INDICATION: Back pain. History T12 fracture.. TECHNIQUE: AP, Lateral and Swimmers imaging of the thoracic spine CORRELATION STUDY: 06/16/2017 FINDINGS: Prior kyphoplasty changes at T12 level with loss of approximately slightly greater than 50% vertebral body height. Configuration appears generally stable. The remaining thoracic vertebral bodies are unchanged and preserved. Mild thoracic spondylosis is present. Very slight accentuated kyphosis at decompression. Alignment otherwise anatomic. IMPRESSION: No radiographic evidence for acute abnormality of the thoracic spine. Unchanged prior compression deformity with post-kyphoplasty changes at T12. Dictated by: Dictated on workstation # [id number]
--- NOTE | 2020-06-10 13:03 | Diagnostic Imaging Report ---
INDICATION: Back pain. TECHNIQUE: AP, lateral and spot imaging of the lumbar spine. CORRELATION STUDY: 06/16/2017. FINDINGS: Prior kyphoplasty changes at T12. The lumbar vertebral body heights are maintained. Various degrees of disc space narrowing. L5-S1 level with marked loss of disc space height and endplate sclerosis and osteophyte formation. Likely osseous encroachment on the neural foramina. Slight loss of height and sclerosis at the anterior superior L2 level slightly progressed from prior study but appears to be largely chronic and not acute. Partial visualization of right hip prosthesis. IMPRESSION: No radiographic evidence for acute bony abnormality of the lumbar spine. Multilevel degenerative changes present. Dictated by: Dictated on workstation # [id number]
== END ==
LOC: RAD 09:46
PROVIDERS: ATTEND Family Medicine
DX: Z12.31 Encounter for screening mammogram for malignant neoplasm of breast (principal)
CPT/HCPCS: 72072; 72100; 77063; 77067

== ENCOUNTER → 2020-07-19 | Outpatient (CLI) | payer MEDICARE ==
--- NOTE | 2020-07-19 14:23 | Diagnostic Imaging Report ---
PROCEDURE: MRI lumbar spine. TECHNIQUE: Multiplanar, multisequence MRI of the lumbar spine was performed without contrast. INDICATION: Low back pain. Patient has prior history of kyphoplasty at T12. Correlation is made with prior MRI of the lumbar spine from 12/01/2013. Transitional lumbosacral vertebral body is noted. Please note that for counting purposes, the vertebral body demonstrating kyphoplasty changes will be considered T12. This counting method is different than the MRI from 12/01/2013. Curvature and alignment of the lumbar spine is normal. Kyphoplasty changes at T12 are noted. Lumbar vertebrae demonstrate normal height. No acute compression fracture is detected. There is significant degenerative disc disease at all levels of the lumbar spine with disc space narrowing and desiccation with marginal osteophyte formation. The conus is unremarkable at the T12-L1 level. T12-L1: Central canal is widely patent. Neural foramina are patent. L1-L2: Broad-based disc/osteophyte complex does indent the ventral thecal sac. There is mild narrowing of the central canal. There is some ligamentous thickening present as well. There is narrowing of the lateral recesses bilaterally, left greater. Moderate bilateral neural foraminal stenosis is detected. L2-L3: Broad-based disc/osteophyte complex as well as ligamentous thickening produces moderate trefoil stenosis to the canal. There is significant narrowing of the lateral recesses bilaterally. There is also moderate bilateral neural foraminal stenosis. L3-L4: Broad-based disc/osteophyte complex and ligamentous thickening results in moderate narrowing of the central canal. There is significant narrowing of bilateral lateral recesses as well as moderate bilateral neural foraminal stenosis. L4-L5: Marked hypertrophic facet changes and ligamentous thickening with broad-based disc/osteophyte complex results in severe central canal stenosis. AP dimensions of the canal are 3 to 4 mm. There is severe narrowing of lateral recesses bilaterally as well as severe bilateral neural foraminal stenosis. L5-S1: Broad-based disc/osteophyte complex indents the ventral thecal sac. Central canal is patent but there is severe narrowing of the lateral recesses bilaterally. There is also significant bilateral neural foraminal stenosis. The paraspinous tissues are unremarkable. IMPRESSION: Severe multilevel lumbar spondylosis with multilevel central canal, lateral recess and neural foraminal stenosis described level by level above. This is most severe at the L4-L5 level, as described. No acute compression fracture is detected. There is a treated compression fracture at T12. Dictated by: Dictated on workstation # [id number]
== END ==
LOC: RAD 12:30
PROVIDERS: ATTEND Family Medicine
DX: M48.07 Spinal stenosis, lumbosacral region (principal); M51.36 Other intervertebral disc degeneration, lumbar region; M47.816 Spondylosis without myelopathy or radiculopathy, lumbar region; Z87.311 Personal history of (healed) other pathological fracture
CPT/HCPCS: 72148

== ENCOUNTER 2021-02-03 05:28 | Outpatient (RCR) | payer MEDICARE ==
[~2021-02-03] VITALS: Ht 162.5 cm; Wt 65.0 kg
[~2021-02-03 05:28] MED LIST changes: +ESCI20TA39 PO; +HYDR-3820 PO; +ROSU40TA23 PO
== END 2021-02-03 10:18 | disposition home or self-care (01) ==
LOC: PREOP 05:28
PROVIDERS: ATTEND Surgery
DX: Z01.818 Encounter for other preprocedural examination (principal)

== ENCOUNTER 2021-03-12 05:39 | Outpatient (CLI) | payer MEDICARE ==
[~2021-03-12] VITALS: Ht 162.6 cm; Wt 65.4 kg
[2021-03-13] MEDS ORDERED: HYDR25TA4 PO (08:50)
[2021-03-13] MEDS ORDERED: MELO10CA3 PO (08:50)
[2021-03-13] MEDS ORDERED: ESTA1TAB PO (08:50)
== END 2021-03-13 11:07 | disposition home or self-care (01) ==
LOC: PREOP 05:39 → EDSTATUS 09:00 → PREOP 03-13 11:07
PROVIDERS: ATTEND Surgery
DX: Z01.818 Encounter for other preprocedural examination (principal)

== ENCOUNTER 2021-03-19 08:15 | Day surgery (SDC) | payer MEDICARE ==
--- NOTE | 2021-03-14 12:16 | HISTORY AND PHYSICAL ---
DATE OF SERVICE: PROCEDURE DATE: 03/19/2021. ATTENDING PHYSICIAN: Dr. Leo Humphrey. HISTORY OF PRESENT ILLNESS: The patient is a 65-year-old female who is known to us. She was seen in 2018 for a cyst of the left lower neck. It was removed at that time and consistent with a sebaceous cyst. On today's visit, she reports she is in need of a screening colonoscopy. She reports her last colonoscopy was 10 years ago or greater. She reports that it was normal at that time and denies any blood in her stool as well as no family history of any colon cancer. She also denies any diarrhea, constipation or any abdominal pain. MEDICAL HISTORY: Hypercholesterolemia, degenerative joint disease, extremity edema, anxiety. PAST SURGICAL HISTORY: Tonsillectomy, section in 1982, laparoscopic cholecystectomy in 2003, transvaginal partial hysterectomy in 2013, T12 kyphoplasty in 2016, and right total hip replacement in 2013. ALLERGIES: SULFA. MEDICATIONS: Vitamin D, vitamin B complex, multivitamin, estradiol, 15 mg, hydrocodone/acetaminophen 10/325 mg, rosuvastatin 10 mg, Lexapro 20 mg, hydrochlorothiazide 25 mg. SOCIAL HISTORY: Previous for tobacco smoke for 20 pack years, quit in 1982. Social for alcohol. FAMILY HISTORY: Father with prostate cancer. Mother, hypertension. VITAL SIGNS: Blood pressure is 129/61. Current weight is 144 pounds at 5 feet 4 inches with a body mass index of 24.7. REVIEW OF SYSTEMS: This is a well-nourished female in no acute distress. She is not experiencing any shortness of breath or difficulty breathing. No chest pain, palpitations or diaphoresis. No nausea, vomiting or abdominal pain. No diarrhea or constipation. No red blood per rectum. No dark tarry stools. No fever or chills. No recent inadvertent weight loss. All other review of systems negative. PHYSICAL EXAMINATION: CHEST: Clear. Good breath sounds bilaterally. HEART: Regular, no murmurs. EXTREMITIES: No lower extremity edema. Negative Homans sign. HEENT: No scleral icterus. NECK: No cervical lymphadenopathy. ABDOMEN: Soft, nontender, nondistended. SKIN: Warm, dry and pink. NEUROLOGIC: Awake, alert and oriented x3. ASSESSMENT AND PLAN: This is a 65-year-old female who is in need of a screening colonoscopy. The risks and benefits of the procedure as well as the procedure and home care instructions were explained to the patient. The patient verbalized understanding of instructions and agrees to proceed as planned. At this time, we will proceed with scheduling her for a screening colonoscopy. Job ID: [id number] DocumentID: [id number] Dictated Date: 03/14/2021 11:02:47 Hot Saw Operator Date: 03/14/2021 12:15:28 Dictated By: TABATHA HEARN APRN
[~2021-03-19] VITALS: Ht 162.6 cm; Wt 65.4 kg
[2021-03-19] VITALS (9 sets, daily range): BP systolic 98–135; BP diastolic 53–74
[~2021-03-19 08:15] MED LIST changes: +ESTA1TAB PO; +MELO10CA3 PO
[2021-03-19] MEDS ORDERED: LACTATED RINGERS 1,000 ML IV ONE (08:18)
[2021-03-19] MEDS ORDERED: LACTATED RINGERS 1,000 ML IV STA (08:23)
[2021-03-19] MEDS ORDERED: LIDOCAINE JELLY 2% 6 ML SYRINGE MM PRN (08:30)
[2021-03-19] MEDS ORDERED: PROPOFOL INJECTION 50 ML IV ONE ×2 (09:38→11:07)
[2021-03-19] MEDS ORDERED: MIDAZOLAM 2 MG/2 ML (VERSED) VIAL ONE (09:38)
[2021-03-19] MEDS ORDERED: LIDOCAINE JELLY 2% 6 ML SYRINGE ONE (10:37)
--- NOTE | 2021-03-19 10:47 | Progress Note-Pre Operative ---
Pre-Operative Progress Note H&P Reviewed The H&P was reviewed, patient examined and no changes noted. Date Seen by Provider: Mar 19, 2021 Time Seen by Provider: 10:00 Date H&P Reviewed: Mar 19, 2021 Time H&P Reviewed: 10:00 Pre-Operative Diagnosis: screening SOUTH Villagran MD Mar 19, 2021 10:47
--- NOTE | 2021-03-19 10:48 | Discharge Inst-Surgical ---
D/C Lap Instructions-ATILIO Follow Up Activity as tolerated High Fiber Diet 25g or more per day Avoid Alcohol, Caffeine, Spicy [place] and Acid foods. Drink 64 fluid oz or more of fluids per day. Symptoms to Report: Fever over 101 degree F, Nausea/Vomiting If any problems/questions: Contact your physician or go to Emergency Room SOUTH TRIMBLE MD Mar 19, 2021 10:48
[2021-03-19] MEDS ORDERED: morphine INJ 10 MG/ML 1ML (SYR OR VIAL) IVP PRN ×2 (11:00)
[2021-03-19] MEDS ORDERED: HYDROcodone/APAP 5 MG/325 MG (LORTAB) TAB PO PRN (11:00)
[2021-03-19] MEDS ORDERED: ONDANSETRON 4 MG/2 ML (SDV) Z0FRAN IVP PRN (11:00)
[2021-03-19] MEDS ORDERED: ACETAMINOPHEN 325 MG TABLET PO PRN (11:00)
--- NOTE | 2021-03-19 11:36 | Progress Note-Post Operative ---
Post-Operative Progess Note Surgeon (s)/Vp Data (s) Surgeon SOUTH TRIMBLE MD Vp Data: none Pre-Operative Diagnosis screening colo Post-Operative Diagnosis moderate chronic stage 2 ext and int hemorrhoids. Procedure & Operative Findings Date of Procedure 03/19/21 Procedure Performed/Findings colonoscopy Anesthesia Type mac Estimated Blood Loss Estimated blood loss (mL): minimal Specimens/Packing Specimens Removed none SOUTH TRIMBLE MD Mar 19, 2021 11:36
--- NOTE | 2021-03-19 14:09 | Anesthesia-General Post-Op ---
MAC Patient Condition Mental Status/LOC: Same as Preop Cardiovascular: Satisfactory Nausea/Vomiting: Absent Respiratory: Satisfactory Pain: Controlled Complications: Absent Post Op Complications Complications None Follow Up Care/Instructions Patient Instructions None needed. Anesthesiology Discharge Order Discharge Order Patient is doing well, no complaints, stable vital signs, no apparent adverse anesthesia problems. No complications reported per nursing. SYDNIE GATES CRNA Mar 19, 2021 14:09
--- NOTE | 2021-03-19 17:58 | OPERATIVE REPORT ---
DATE OF SERVICE: ATTENDING PRIMARY CARE PHYSICIAN: Dr. Leo Humphrey. PREOPERATIVE DIAGNOSIS: Screening colonoscopy. POSTOPERATIVE DIAGNOSES: Moderate stage II external and internal hemorrhoids. Remainder of the rectum and colon were normal. PROCEDURE: Colonoscopy. SURGEON: [place] Trimble MD. ANESTHESIA: Monitored anesthesia care. ESTIMATED BLOOD LOSS: Minimal. FINDINGS: Moderate stage II external and internal hemorrhoids. Remainder of the rectum and colon were normal. DISPOSITION: The patient tolerated the procedure well. INDICATIONS: The patient is a 65-year-old female known to us. She was referred over to us for screening colonoscopy. She reports that her last colonoscopy was approximately 10 to 12 years ago. She does not report any major issues with diarrhea nor constipation as well as no red blood per rectum nor any dark tarry stools. She also does not report any family history of colon cancer. DESCRIPTION OF PROCEDURE: The patient was brought to the endoscopy suite, laid in the left lateral decubitus position with the head slightly elevated. After adequate IV pain and sedative medications and monitored anesthesia care, digital rectal examination was performed. Moderate chronic stage II external and internal hemorrhoids were identified, which were not actively edematous nor inflamed and no bleeding. Normal sphincter tone was felt and there were no palpable masses. The endoscope was then intubated and anus and rectum gently insufflated. The endoscope was then advanced through the valves of Michelle of the rectum with no polyps or any neoplasms identified. We then proceeded to sigmoid colon where no diverticulosis identified. The endoscope was then advanced to the remainder of the descending, transverse and ascending colon to the cecum. These segments were normal. There were no polyps or any neoplasms identified throughout the colon or rectum. The endoscope was then slowly withdrawn with taking a second look and suctioning of residual air with no additional findings. The patient tolerated the procedure well. We will recommend medical management with a high fiber diet with at least 25 grams of fiber daily as well as significant amounts of water to promote soft stools on a daily basis and to decrease the amount of p.r.n. laxative use. She does not need another colonoscopy for another 10 years if she is asymptomatic. Job ID: [id number] DocumentID: [id number] Dictated Date: 03/19/2021 11:32:40 Library Science Instructor Date: 03/19/2021 17:10:02 Dictated By: SOUTH TRIMBLE MD
== END 2021-03-19 12:40 | disposition home or self-care (01) ==
LOC: ENDO 08:15
PROVIDERS: ATTEND Surgery
DX: Z12.11 Encounter for screening for malignant neoplasm of colon (principal); K64.1 Second degree hemorrhoids; G89.29 Other chronic pain; M54.9 Dorsalgia, unspecified; E78.00 Pure hypercholesterolemia, unspecified; F41.9 Anxiety disorder, unspecified; Z79.899 Other long term (current) drug therapy; Z88.2 Allergy status to sulfonamides; Z87.891 Personal history of nicotine dependence; Z90.711 Acquired absence of uterus with remaining cervical stump
CPT/HCPCS: G0121

== ENCOUNTER → 2021-07-17 | Outpatient (CLI) | payer MEDICARE ==
--- NOTE | 2021-07-17 13:22 | Diagnostic Imaging Report ---
INDICATION: Routine screening. COMPARISON is made with prior mammograms from 06/10/2020 and 06/30/2017. 2-D and 3-D bilateral screening mammography was performed with CAD. Both breasts are heterogeneously dense, limiting the sensitivity of mammography. The parenchymal pattern is stable. No mass or malignant-appearing microcalcifications are seen. Axillae are unremarkable. IMPRESSION: BI-RADS Category 1 No mammographic features suspicious for malignancy are identified. ACR BI-RADS Category 1: Negative. Result letter will be mailed to the patient. Note: At least 10% of breast cancer is not imaged by mammography. Dictated by: Dictated on workstation # [id number]
== END ==
LOC: RAD 11:00
PROVIDERS: ATTEND Nurse Practitioner Family
DX: Z12.31 Encounter for screening mammogram for malignant neoplasm of breast (principal)
CPT/HCPCS: 77063; 77067

== ENCOUNTER → 2022-02-04 | Outpatient (CLI) | payer MEDICARE ==
[~2022-02-04] MED LIST changes: -TERB250T16 PO; +TERB250T88 PO
--- NOTE | 2022-02-04 12:00 | Diagnostic Imaging Report ---
INDICATION: Lower back pain. COMPARISON: 06/10/2020 FINDINGS: Frontal and lateral radiographic views of the lumbar spine were obtained. Flexion views are also provided in the lateral projection. Patient is status post previous cement augmentation at T12. Evaluation static alignment shows mild grade 1 retrolisthesis at the L1-L2, L2-L3, and L5-S1 levels. There is also slight grade 1 anterolisthesis at L4-L5. There is no evidence of jumped facets. Additionally, there has been interval progression of levoscoliotic deformity of the lumbar spine. Vertebral body heights are preserved. There is no evidence of acute fracture. There are moderate multilevel degenerative changes consistent with intervertebral disc height loss with multilevel endplate osteophyte formations and multilevel advanced facet arthropathy. Evaluation with flexion and extension views demonstrates no abnormal translation. IMPRESSION: 1. No acute fracture or dislocation lumbar spine. 2. Moderate multilevel degenerative changes. Dictated by: Dictated on workstation # [id number]
--- NOTE | 2022-02-04 13:06 | Diagnostic Imaging Report ---
PROCEDURE: MRI lumbar spine without contrast. TECHNIQUE: Multiplanar, multisequence MRI of the lumbar spine was performed without contrast. INDICATION: Chronic low back pain. COMPARISON: 07/19/2020. FINDINGS: Six lumbar type vertebral bodies are visualized with the last well-formed disc space designated S1-S2. No acute fracture or dislocation is seen in the lumbar spine. Prior kyphoplasty changes are again seen at T12. Modic type I endplate degenerative changes are present at the T12-L1, L2-L3, L4-L5, and L5-S1 levels. No suspicious focal osseous lesions are seen. The conus terminates at the L1 level. No masses are seen associated with the conus or nerve roots of the cauda equina. No epidural collections are identified. Multilevel degenerative changes are seen in the lumbar spine with disc bulges, facet hypertrophy, and buckling of the ligamentum flavum. T12-L1: Disc desiccation with broad-based disc bulge and facet hypertrophy results in no significant spinal canal narrowing and no right and mild left foraminal narrowing. L1-L2: Facet hypertrophy results in no significant spinal canal narrowing and mild bilateral foraminal narrowing. L2-L3: Disc desiccation with broad-based disc bulge, facet hypertrophy, and buckling of the ligamentum flavum result in severe spinal canal stenosis and mild to moderate right and moderate to severe left foraminal stenosis. L3-L4: Broad-based disc bulge, facet hypertrophy, and buckling of the ligamentum flavum result in moderate to severe spinal canal stenosis and moderate right and mild to moderate left foraminal narrowing. L4-L5: Broad-based disc bulge, facet hypertrophy, and buckling of the ligamentum flavum result in severe spinal canal stenosis and moderate to severe right and moderate left foraminal stenosis. L5-S1: Broad-based disc bulge with disc desiccation, facet hypertrophy, and buckling of the ligamentum flavum result in moderate spinal canal stenosis and moderate to severe bilateral foraminal stenosis. Paravertebral soft tissues are unremarkable. IMPRESSION: 1. No acute fracture or dislocation in the lumbar spine. 2. Multilevel degenerative changes in the lumbar spine, greatest at L2-L3, L3-L4, and L4-L5. These findings have worsened since the prior exam. 3. Modic type I endplate degenerative changes at the T12-L1, L2-L3, L4-L5, and L5-S1 levels. These findings have progressed since the prior exam. 4. Prior kyphoplasty changes at the T12 level. Dictated by: Dictated on workstation # [id number]
== END ==
LOC: RAD 13:15
PROVIDERS: ATTEND Physician Assistant
DX: M47.815 Spondylosis without myelopathy or radiculopathy, thoracolumbar region (principal); M47.817 Spondylosis without myelopathy or radiculopathy, lumbosacral region; M48.061 Spinal stenosis, lumbar region without neurogenic claudication; Z98.1 Arthrodesis status
CPT/HCPCS: 72110; 72148

== ENCOUNTER → 2022-07-16 | Outpatient (CLI) | payer MEDICARE ==
[~2022-07-16] MED LIST changes: -ESTA1TAB PO; +ESTA1TAB2 PO
--- NOTE | 2022-07-16 16:56 | Diagnostic Imaging Report ---
INDICATION: Routine screening. COMPARISON: Prior mammograms from 07/17/2021 and 06/10/2020. EXAMINATION: 2D and 3D bilateral screening mammography was performed with CAD. The current study was also evaluated with a Computer Aided Detection (CAD) system. FINDINGS: Both breasts are heterogeneously dense, limiting the sensitivity of mammography. The parenchymal pattern is stable. No mass or malignant-appearing microcalcifications are seen. Axillae are unremarkable. IMPRESSION: No mammographic features suspicious for malignancy are identified. ACR BI-RADS Category 1: Negative. Result letter will be mailed to the patient. Note: At least 10% of breast cancer is not imaged by mammography. Dictated by: Dictated on workstation # [id number]
== END ==
LOC: RAD 11:30
PROVIDERS: ATTEND Physician Assistant
DX: Z12.31 Encounter for screening mammogram for malignant neoplasm of breast (principal)
CPT/HCPCS: 77063; 77067

== ENCOUNTER → 2023-10-11 | Outpatient (CLI) | payer MEDICARE ==
--- NOTE | 2023-10-12 09:27 | Diagnostic Imaging Report ---
EXAMINATION: 3D bilateral screening mammogram with CAD. INDICATION: Screening. COMPARISON: This study was compared to the prior exams of 07/16/2022, 07/17/2021, and 06/10/2020. PERSONAL HISTORY: At this time, there are no current complaints. TECHNIQUE: 3D bilateral screening mammogram. The current study was also evaluated with a Computer Aided Detection (CAD) system. FINDINGS: The fibroglandular tissue in both breasts is heterogeneously dense. This does limit the sensitivity of this exam. Overall, there does not appear to have been any significant change when compared to the prior study. No primary or secondary sign of malignancy is noted. IMPRESSION: There is no radiographic evidence for malignancy. ACR BI-RADS Category 1: Negative. Result letter will be mailed to the patient. Note: At least 10% of breast cancer is not imaged by mammography. Dictated by: Dictated on workstation # [id number]
== END ==
LOC: RAD 14:10
PROVIDERS: ATTEND Internal Medicine
DX: Z12.31 Encounter for screening mammogram for malignant neoplasm of breast (principal)
CPT/HCPCS: 77063; 77067